=== PATIENT | male | born 1970 ===

== ENCOUNTER 2021-02-22 17:30 | Outpatient (CLI) | payer BC | END 2021-02-22 17:31 | disposition home or self-care (01) | LOC: SCSRAD 17:30 | PROVIDERS: ATTEND Family Medicine | DX: M79.671 Pain in right foot (principal) ==

== ENCOUNTER 2022-02-17 15:11 | Outpatient (CLI) | payer BC | END 2022-02-17 15:12 | disposition home or self-care (01) | LOC: SCSRAD 15:11 | PROVIDERS: ATTEND Family Medicine | DX: M25.511 Pain in right shoulder (principal) ==